=== PATIENT | male | born 1950 | race Caucasian/White ===

== ENCOUNTER 2016-12-30 15:14 | Emergency (ER) | payer OTHER, MEDICARE ==
[~2016-12-30] VITALS: Ht 175.3 cm; Wt 102.0 kg
[2016-12-30 15:19] VITALS: BP 193/95; PULSE 68; RESP 18; TEMP 98.8; O2SAT 98
--- NOTE | 2016-12-30 15:40 | PD ---
HPI Chief Complaint: Cardiac Complaint Time Seen by Provider: 15:37 Travel History International Travel<30 days: No Contact w/Intl Traveler<30days: No Traveled to known affect area: No History of Present Illness HPI 66-year-old male presents to the emergency department for evaluation of palpitations. Patient states he feels like his heart flutters. He states he has had this feeling for approximately 10-15 years. However, this morning, the feeling lasted longer than normal. He states it lasted 30 minutes before resolved which is atypical for him. He also states he has chronic abdominal pain and bloating as well as chronic diarrhea. He states he has had these for several years. He denies any abdominal pain at this time. He states that he believes his diarrhea is caused by his pancreas. The patient states that he has already seen a wash tank tender who did an endoscopy for these symptoms. These are unchanged. He also reports history of hypertension and diabetes. He denies any chest pain. No fevers or chills. No vomiting. No diaphoresis. PFSH Past Medical History Diabetes: Yes Patient Takes Glucophage: Yes (METFORMIN) Hypertension: Yes Kidney Stones: Yes Sleep Apnea: Yes (CPAP AT NIGHT) Social History Alcohol Use: No Tobacco Use: No Substance Use: Yes (MARIJUANA) Allergies-Medications (Allergen,Severity, Reaction): Coded Allergies: Lisinopril (Verified Allergy, Unknown, 12/30/16) Reported Meds & Prescriptions Reported Meds & Active Scripts Active Reported Metformin (Metformin HCl) 500 Mg Tab 500 Mg PO BIDPC With meals Amlodipine (Amlodipine Besylate) 5 Mg Tab 5 Mg PO DAILY Chlorthalidone 25 Mg Tab 25 Mg PO DAILY Glipizide 10 Mg Tab 10 Mg PO BIDAC Take 30 minutes before a meal Simvastatin 20 Mg Tab 20 Mg PO HS Wellbutrin SR 12 HR (Bupropion HCl) 200 Mg Tab 200 Mg PO Q12HR Metoprolol Tartrate 25 Mg Tab 25 Mg PO BID K-Tab (Potassium Chloride) 20 Meq Tab 20 Meq PO DAILY PRN Review of Systems Except as stated in HPI: all other systems reviewed are Neg Physical Exam Narrative GENERAL: Well-nourished, well-developed obese male patient, afebrile. SKIN: Focused skin assessment warm/dry. HEAD: Normocephalic. Atraumatic. EYES: No scleral icterus. No injection or drainage. NECK: Supple, trachea midline. No JVD or lymphadenopathy. CARDIOVASCULAR: Regular rate and rhythm without murmurs, gallops, or rubs. Bilateral radial and pedal pulses 2+. RESPIRATORY: Breath sounds equal bilaterally. No accessory muscle use. Lungs sounds are clear to auscultation. GASTROINTESTINAL: Abdomen soft, non-tender, nondistended. MUSCULOSKELETAL: No cyanosis, or edema. BACK: Nontender without obvious deformity. No CVA tenderness. Data Data Last Documented VS Vital Signs Date Time Temp Pulse Resp B/P Pulse Ox O2 Delivery O2 Flow Rate FiO2 12/30/16 17:19 68 18 156/90 96 Room Air 12/30/16 15:19 98.8 Orders Electrocardiogram (12/30/16 15:35) Ckmb (Isoenzyme) Profile (12/30/16 15:35) Complete Blood Count With Diff (12/30/16 15:35) Comprehensive Metabolic Panel (12/30/16 15:35) Magnesium (Mg) (12/30/16 15:35) Troponin I (12/30/16 15:35) Lipase (12/30/16 15:35) Chest, Single Ap (12/30/16 15:35) Ecg Monitoring (12/30/16 15:35) Bilateral Bp Monitoring (12/30/16 15:35) Iv Access Insert/Monitor (12/30/16 15:35) Oximetry (12/30/16 15:35) Oxygen Administration (12/30/16 15:35) Sodium Chloride 0.9% Flush (Ns Flush) (12/30/16 15:45) CKMB (12/30/16 16:06) CKMB% (12/30/16 16:06) Potassium Chloride (Kcl) (12/30/16 18:30) Labs Laboratory Tests Test 12/30/16 16:06 White Blood Count 15.0 TH/MM3 Red Blood Count 5.27 MIL/MM3 Hemoglobin 16.6 GM/DL Hematocrit 47.4 % Mean Corpuscular Volume 90.0 FL Mean Corpuscular Hemoglobin 31.4 PG Mean Corpuscular Hemoglobin 34.9 % Concent Red Cell Distribution Width 14.0 % Platelet Count 346 TH/MM3 Mean Platelet Volume 7.4 FL Neutrophils (%) (Auto) 58.2 % Lymphocytes (%) (Auto) 30.7 % Monocytes (%) (Auto) 9.6 % Eosinophils (%) (Auto) 1.2 % Basophils (%) (Auto) 0.3 % Neutrophils # (Auto) 8.8 TH/MM3 Lymphocytes # (Auto) 4.6 TH/MM3 Monocytes # (Auto) 1.4 TH/MM3 Eosinophils # (Auto) 0.2 TH/MM3 Basophils # (Auto) 0.0 TH/MM3 CBC Comment DIFF FINAL Differential Comment Sodium Level 135 MEQ/L Potassium Level 3.3 MEQ/L Chloride Level 96 MEQ/L Carbon Dioxide Level 23.8 MEQ/L Anion Gap 15 MEQ/L Blood Urea Nitrogen 17 MG/DL Creatinine 1.41 MG/DL Estimat Glomerular Filtration 50 ML/MIN Rate Random Glucose 276 MG/DL Calcium Level 10.1 MG/DL Magnesium Level 1.8 MG/DL Total Bilirubin 0.6 MG/DL Aspartate Amino Transf 34 U/L (AST/SGOT) Alanine Aminotransferase 42 U/L (ALT/SGPT) Alkaline Phosphatase 65 U/L Total Creatine Kinase 146 U/L Creatine Kinase MB 1.4 NG/ML Troponin I LESS THAN 0.02 NG/ML Total Protein 8.4 GM/DL Albumin 4.3 GM/DL Lipase 247 U/L [facility] Medical Decision Making Medical Screen Exam Complete: Yes Emergency Medical Condition: Yes Medical Record Reviewed: Yes Interpretation(s) Last Impressions Chest X-Ray 12/30/16 1535 Signed Impressions: Service Date/Time: Monday, December 30, 2016 15:39 - CONCLUSION: 1. Lungs are hypoinflated but clear. 2. Marked widening of the a.c. joints bilaterally. This appears chronic. Catracho Yuan MD Differential Diagnosis Palpitations versus electrolyte abnormality versus unlikely ACS versus chronic abdominal pain Narrative Course 66-year-old male presents to the emergency department for evaluation of a feeling like his heart is fluttering that lasted for 30 minutes. He states he has had this feeling for 10-15 years, but lasted longer today than normal. He has no chest pain. Patient appears well on exam. EKG shows sinus rhythm, heart rate 68, no acute ST changes. CBC, CMP, lipase, magnesium, CK, troponin, chest x-ray ordered and pending. CBC shows leukocytosis 15.0. CMP shows hypokalemia 3.3, creatinine of 1.41, glucose 276. Lipase is 247. Magnesium is 1.8. CK is 146. Troponin is less than 0.02. Chest x-ray shows 1. Lungs are hypoinflated but clear. 2. Marked widening of the a.c. joints bilaterally. This appears chronic. Symptoms are very chronic for patient as he has had same palpitations for 10-15 years. He denies chest pain. Lab work is reassuring. Patient was monitored in the emergency department and HR stayed in the 60's and 70's throughout his visit. Patient is instructed to follow up with his primary care physician. Diagnosis Primary Impression: Intermittent palpitations Referrals: Primary Care Physician call for appointment Patient Instructions: General Instructions, Palpitations (ED) Additional Instructions: Follow-up with your primary care physician. Return to the emergency department for any acute worsening of symptoms. Med/Other Pt SpecificInfo: No Change to Meds Disposition: 01 DISCHARGE HOME Condition: Stable Audrey Matthews December 30, 2016 15:40
[2016-12-30] MEDS ORDERED: SODIUM CHLORIDE 0.9% FLUSH 10 ML FLUSH IVF PRN (15:45)
[2016-12-30 16:15] LABS: AUTOMATED NEUTROPHIL # 8.8 TH/MM3 (1.8-7.7); BASOPHIL % 0.3 % (0.0-2.0); EOSINOPHIL # 0.2 TH/MM3 (0-0.4); EOSINOPHIL % 1.2 % (0.0-4.0); HEMATOCRIT 47.4 % (39.0-51.0); HEMO FLAGS DIFF FINAL; LYMPH % 30.7 % (9.0-44.0); LYMPHOCYTE # 4.6 TH/MM3 (1.0-4.8); MEAN CORPUSCULAR HEMOGLOBIN 31.4 PG (27.0-34.0); MEAN CORPUSCULAR HGB CONC 34.9 % (32.0-36.0); MONO % 9.6 % (0.0-8.0); NEUT % 58.2 % (16.0-70.0); PLATELET COUNT 346 TH/MM3 (150-450); RED BLOOD COUNT 5.27 MIL/MM3 (4.50-5.90)
--- NOTE | 2016-12-30 16:27 | RADRPT ---
EXAM DATE/TIME: 12/30/2016 15:39 [facility] COMPARISON: No previous studies available for comparison. INDICATIONS : Chest pain MEDICAL HISTORY : Diabetes mellitus type II. Hypertension Cardiac flutter SURGICAL HISTORY : None. ENCOUNTER: Initial ACUITY: 1 day PAIN SCORE: 6/10 LOCATION: Bilateral chest FINDINGS: A single view of the chest demonstrates the lungs to be symmetrically but under aerated without acute infiltrate or effusion. Accounting for the low lung finds the heart size is normal. Marked widening of the a.c. joints bilaterally appears chronic. Right shoulder also appears to be high riding which m ay be indicative of a chronic rotator cuff injury. CONCLUSION: 1. Lungs are hypoinflated but clear. 2. Marked widening of the a.c. joints bilaterally. This appears chronic. Catracho Yuan MD on December 30, 2016 at 16:13 Board Certified Radiologist. This report was verified electronically.
[2016-12-30 17:08] LABS: ALKALINE PHOSPHATASE 65 U/L (45-117); ALT (GPT) 42 U/L (12-78); ANION GAP 15 MEQ/L (5-15); AST (GOT) 34 U/L (15-37); BICARBONATE 23.8 MEQ/L (21.0-32.0); BLOOD UREA NITROGEN 17 MG/DL (7-18); CHLORIDE 96 MEQ/L (98-107); CREATINE KINASE 146 U/L (39-308); GLOMERULAR FILTRATION RATE 50 ML/MIN (>89); MAGNESIUM 1.8 MG/DL (1.5-2.5); POTASSIUM 3.3 MEQ/L (3.5-5.1); SODIUM (NA) 135 MEQ/L (136-145); TOTAL BILIRUBIN ADULT 0.6 MG/DL (0.2-1.0)
[2016-12-30 17:15] VITALS: O2SAT 96
[2016-12-30 17:19] VITALS: BP 156/90; PULSE 68; RESP 18; O2SAT 96
[2016-12-30 17:22] LABS: CKMB 1.4 NG/ML (0.5-3.6)
[2016-12-30] MEDS ORDERED: METO25TA3 PO (18:15)
[2016-12-30] MEDS ORDERED: METF500T PO (18:15)
[2016-12-30] MEDS ORDERED: POTA1TAB4 PO (18:15)
[2016-12-30] MEDS ORDERED: AMLO5TAB2 PO (18:15)
[2016-12-30] MEDS ORDERED: SIMV20TA PO (18:15)
[2016-12-30] MEDS ORDERED: WELL200T PO (18:15)
[2016-12-30] MEDS ORDERED: CHLO25TA2 PO (18:15)
[2016-12-30] MEDS ORDERED: GLIP10TA6 PO (18:15)
[2016-12-30] MEDS ORDERED: POTASSIUM CHLORIDE 20 MEQ CONTROLLED RELEASE TAB PO ONE (18:30)
[2016-12-30 18:52] VITALS: BP 179/94
--- NOTE | 2016-12-31 15:45 | EKG ---
Date Performed: 12/30/2016 Time Performed: 15:21:35 PTAGE: 66 years EKG: Sinus rhythm LEFT ANTERIOR FASCICULAR BLOCK ABNORMAL ECG NO PREVIOUS TRACING DOCTOR: Jessica Stoner Interpretating Date/Time 12/31/2016 15:44:36
== END 2016-12-30 18:55 | disposition home or self-care (01) ==
LOC: NEPE 15:14
DX: R00.2 Palpitations (principal); D72.829 Elevated white blood cell count, unspecified; E87.6 Hypokalemia; R94.31 Abnormal electrocardiogram [ECG] [EKG]; I10 Essential (primary) hypertension; E11.9 Type 2 diabetes mellitus without complications; G47.30 Sleep apnea, unspecified; Z79.84 Long term (current) use of oral hypoglycemic drugs; Z87.442 Personal history of urinary calculi
CPT/HCPCS: 71010; 80053; 82550; 82552; 83690; 83735; 84484; 85025; 93005